=== PATIENT | male | born 1940 | race Caucasian/White ===

== ENCOUNTER → 2024-05-14 | Outpatient (CLI) | payer MEDICARE, BC, SELFPAY | END | disposition home or self-care (01) | LOC: SWHD 09:54 | PROVIDERS: PCP Family Medicine; Referring Provider Family Medicine; Visit Provider Student in an Organized Health Care Education/Training Program | DX: I87.332 Chronic venous hypertension (idiopathic) with ulcer and inflammation of left lower extremity (principal); L97.322 Non-pressure chronic ulcer of left ankle with fat layer exposed; R60.0 Localized edema; L90.5 Scar conditions and fibrosis of skin; Z91.199 Patient's noncompliance with other medical treatment and regimen due to unspecified reason | CPT/HCPCS: 11042; A9270 ==

== ENCOUNTER → 2024-06-11 | Outpatient (CLI) | payer MEDICARE, BC, SELFPAY | END | disposition home or self-care (01) | LOC: SWHD 10:16 | PROVIDERS: PCP Family Medicine; Referring Provider Family Medicine; Visit Provider Student in an Organized Health Care Education/Training Program | DX: I87.332 Chronic venous hypertension (idiopathic) with ulcer and inflammation of left lower extremity (principal); L97.322 Non-pressure chronic ulcer of left ankle with fat layer exposed; R60.0 Localized edema; L90.5 Scar conditions and fibrosis of skin; Z91.199 Patient's noncompliance with other medical treatment and regimen due to unspecified reason | CPT/HCPCS: 11042; A9270 ==

== ENCOUNTER → 2024-06-25 | Outpatient (CLI) | payer MEDICARE, BC, SELFPAY | END | disposition home or self-care (01) | LOC: SWHD 10:08 | PROVIDERS: PCP Family Medicine; Referring Provider Family Medicine; Visit Provider Student in an Organized Health Care Education/Training Program | DX: I87.332 Chronic venous hypertension (idiopathic) with ulcer and inflammation of left lower extremity (principal); L97.325 Non-pressure chronic ulcer of left ankle with muscle involvement without evidence of necrosis; R60.0 Localized edema; L90.5 Scar conditions and fibrosis of skin; Z91.199 Patient's noncompliance with other medical treatment and regimen due to unspecified reason | CPT/HCPCS: 11042; A9270 ==

== ENCOUNTER → 2024-07-09 | Outpatient (CLI) | payer MEDICARE, BC, SELFPAY | END | disposition home or self-care (01) | LOC: SWHD 10:02 | PROVIDERS: PCP Family Medicine; Referring Provider Family Medicine; Visit Provider Student in an Organized Health Care Education/Training Program | DX: I96 Gangrene, not elsewhere classified (principal); I87.332 Chronic venous hypertension (idiopathic) with ulcer and inflammation of left lower extremity; L97.325 Non-pressure chronic ulcer of left ankle with muscle involvement without evidence of necrosis; R60.0 Localized edema; L90.5 Scar conditions and fibrosis of skin; Z91.199 Patient's noncompliance with other medical treatment and regimen due to unspecified reason | CPT/HCPCS: 11042; A9270 ==

== ENCOUNTER → 2024-07-23 | Outpatient (CLI) | payer MEDICARE, BC, SELFPAY | END | disposition home or self-care (01) | LOC: SWHD 10:19 | PROVIDERS: PCP Family Medicine; Referring Provider Family Medicine; Visit Provider Surgery | DX: I87.332 Chronic venous hypertension (idiopathic) with ulcer and inflammation of left lower extremity (principal); L97.322 Non-pressure chronic ulcer of left ankle with fat layer exposed; R60.0 Localized edema; L90.5 Scar conditions and fibrosis of skin; Z91.199 Patient's noncompliance with other medical treatment and regimen due to unspecified reason | CPT/HCPCS: 11042; A9270 ==

== ENCOUNTER → 2024-08-06 | Outpatient (CLI) | payer MEDICARE, BC, SELFPAY | END | disposition home or self-care (01) | LOC: SWHD 10:12 | PROVIDERS: PCP Family Medicine; Referring Provider Family Medicine; Visit Provider Student in an Organized Health Care Education/Training Program | DX: I96 Gangrene, not elsewhere classified (principal); L97.325 Non-pressure chronic ulcer of left ankle with muscle involvement without evidence of necrosis; R60.0 Localized edema; L90.5 Scar conditions and fibrosis of skin; Z91.199 Patient's noncompliance with other medical treatment and regimen due to unspecified reason | CPT/HCPCS: 11043; A9270 ==

== ENCOUNTER → 2024-08-10 | Outpatient (CLI) | payer MEDICARE, BC, SELFPAY | END | disposition home or self-care (01) | LOC: SWHD 10:03 | PROVIDERS: PCP Family Medicine; Referring Provider Family Medicine; Visit Provider Surgery | DX: I96 Gangrene, not elsewhere classified (principal); L97.325 Non-pressure chronic ulcer of left ankle with muscle involvement without evidence of necrosis; R60.0 Localized edema; L90.5 Scar conditions and fibrosis of skin; E66.9 Obesity, unspecified; Z91.199 Patient's noncompliance with other medical treatment and regimen due to unspecified reason | CPT/HCPCS: 11042 ==

== ENCOUNTER → 2024-08-20 | Outpatient (CLI) | payer MEDICARE, BC, SELFPAY | END | disposition home or self-care (01) | LOC: SWHD 10:06 | PROVIDERS: PCP Family Medicine; Referring Provider Family Medicine; Visit Provider Student in an Organized Health Care Education/Training Program | DX: I96 Gangrene, not elsewhere classified (principal); L97.325 Non-pressure chronic ulcer of left ankle with muscle involvement without evidence of necrosis; R60.0 Localized edema; L90.5 Scar conditions and fibrosis of skin; E66.9 Obesity, unspecified; Z91.199 Patient's noncompliance with other medical treatment and regimen due to unspecified reason | CPT/HCPCS: 11043; A9270 ==

== ENCOUNTER → 2024-08-22 | Outpatient (CLI) | payer MEDICARE, BC, SELFPAY ==
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
== END | disposition home or self-care (01) ==
PROVIDERS: PCP Student in an Organized Health Care Education/Training Program; Referring Provider Student in an Organized Health Care Education/Training Program; Visit Provider Student in an Organized Health Care Education/Training Program
DX: S91.002A Unspecified open wound, left ankle, initial encounter (principal); W34.00XA Accidental discharge from unspecified firearms or gun, initial encounter; I96 Gangrene, not elsewhere classified
CPT/HCPCS: 73721

== ENCOUNTER → 2024-09-03 | Outpatient (CLI) | payer MEDICARE, BC, SELFPAY | END | disposition home or self-care (01) | LOC: SWHD 10:33 | PROVIDERS: PCP Family Medicine; Referring Provider Family Medicine; Visit Provider Surgery | DX: I96 Gangrene, not elsewhere classified (principal); L97.322 Non-pressure chronic ulcer of left ankle with fat layer exposed; R60.0 Localized edema; L90.5 Scar conditions and fibrosis of skin; E66.9 Obesity, unspecified; Z91.199 Patient's noncompliance with other medical treatment and regimen due to unspecified reason | CPT/HCPCS: 11042; A9270 ==

== ENCOUNTER → 2024-09-17 | Outpatient (CLI) | payer MEDICARE, BC, SELFPAY | END | disposition home or self-care (01) | LOC: SWHD 10:30 | PROVIDERS: PCP Family Medicine; Referring Provider Family Medicine; Visit Provider Surgery | DX: I96 Gangrene, not elsewhere classified (principal); L97.322 Non-pressure chronic ulcer of left ankle with fat layer exposed; R60.0 Localized edema; L90.5 Scar conditions and fibrosis of skin; E66.9 Obesity, unspecified; Z91.199 Patient's noncompliance with other medical treatment and regimen due to unspecified reason | CPT/HCPCS: 11042; 99213; A9270; G0463 ==

== ENCOUNTER → 2024-10-01 | Outpatient (CLI) | payer MEDICARE, BC, SELFPAY | END | disposition home or self-care (01) | PROVIDERS: PCP Family Medicine; Referring Provider Family Medicine; Visit Provider Student in an Organized Health Care Education/Training Program | DX: I96 Gangrene, not elsewhere classified (principal); L97.325 Non-pressure chronic ulcer of left ankle with muscle involvement without evidence of necrosis; R60.0 Localized edema; L90.5 Scar conditions and fibrosis of skin; E66.9 Obesity, unspecified; Z91.199 Patient's noncompliance with other medical treatment and regimen due to unspecified reason | CPT/HCPCS: 11042; A9270 ==

== ENCOUNTER → 2024-10-15 | Outpatient (CLI) | payer MEDICARE, BC, SELFPAY | END | disposition home or self-care (01) | LOC: SWHD 10:29 | PROVIDERS: PCP Family Medicine; Referring Provider Family Medicine; Visit Provider Student in an Organized Health Care Education/Training Program | DX: I96 Gangrene, not elsewhere classified (principal); L97.322 Non-pressure chronic ulcer of left ankle with fat layer exposed; R60.0 Localized edema; L90.5 Scar conditions and fibrosis of skin; E66.9 Obesity, unspecified; Z91.199 Patient's noncompliance with other medical treatment and regimen due to unspecified reason | CPT/HCPCS: 97597; A9270 ==

== ENCOUNTER → 2024-10-29 | Outpatient (CLI) | payer MEDICARE, BC, SELFPAY | END | disposition home or self-care (01) | LOC: SWHD 10:18 | PROVIDERS: PCP Family Medicine; Referring Provider Family Medicine; Visit Provider Surgery | DX: I96 Gangrene, not elsewhere classified (principal); E66.9 Obesity, unspecified; Z91.199 Patient's noncompliance with other medical treatment and regimen due to unspecified reason | CPT/HCPCS: 11042; A9270 ==

== ENCOUNTER → 2024-11-12 | Outpatient (CLI) | payer MEDICARE, BC, SELFPAY | END | disposition home or self-care (01) | LOC: SWHD 10:50 | PROVIDERS: PCP Family Medicine; Referring Provider Family Medicine; Visit Provider Student in an Organized Health Care Education/Training Program | DX: I96 Gangrene, not elsewhere classified (principal); L97.322 Non-pressure chronic ulcer of left ankle with fat layer exposed; R60.0 Localized edema; L90.5 Scar conditions and fibrosis of skin | CPT/HCPCS: 11042; A9270 ==

== ENCOUNTER → 2024-11-26 | Outpatient (CLI) | payer MEDICARE, BC, SELFPAY | END | disposition home or self-care (01) | LOC: SWHD 10:44 | PROVIDERS: PCP Family Medicine; Referring Provider Family Medicine; Visit Provider Student in an Organized Health Care Education/Training Program | DX: I96 Gangrene, not elsewhere classified (principal); L97.322 Non-pressure chronic ulcer of left ankle with fat layer exposed; R60.0 Localized edema; L90.5 Scar conditions and fibrosis of skin | CPT/HCPCS: 11042; A9270 ==

== ENCOUNTER → 2024-12-10 | Outpatient (CLI) | payer MEDICARE, BC, SELFPAY | END | disposition home or self-care (01) | LOC: SWHD 10:15 | PROVIDERS: PCP Family Medicine; Referring Provider Family Medicine; Visit Provider Student in an Organized Health Care Education/Training Program | DX: I96 Gangrene, not elsewhere classified (principal); L97.322 Non-pressure chronic ulcer of left ankle with fat layer exposed; R60.0 Localized edema; L90.5 Scar conditions and fibrosis of skin | CPT/HCPCS: 11042; A9270 ==

== ENCOUNTER → 2024-12-24 | Outpatient (CLI) | payer MEDICARE, BC, SELFPAY | END | disposition home or self-care (01) | LOC: SWHD 10:16 | PROVIDERS: PCP Family Medicine; Referring Provider Family Medicine; Visit Provider Student in an Organized Health Care Education/Training Program | DX: I96 Gangrene, not elsewhere classified (principal); I87.312 Chronic venous hypertension (idiopathic) with ulcer of left lower extremity; L97.322 Non-pressure chronic ulcer of left ankle with fat layer exposed; R60.0 Localized edema; L90.5 Scar conditions and fibrosis of skin; I73.9 Peripheral vascular disease, unspecified; E66.9 Obesity, unspecified; Z91.199 Patient's noncompliance with other medical treatment and regimen due to unspecified reason | CPT/HCPCS: 11042; A9270 ==

== ENCOUNTER → 2025-01-07 | Outpatient (CLI) | payer MEDICARE, BC, SELFPAY | END | disposition home or self-care (01) | PROVIDERS: PCP Family Medicine; Referring Provider Family Medicine; Visit Provider Student in an Organized Health Care Education/Training Program | DX: I96 Gangrene, not elsewhere classified (principal); I87.312 Chronic venous hypertension (idiopathic) with ulcer of left lower extremity; L97.322 Non-pressure chronic ulcer of left ankle with fat layer exposed; R60.0 Localized edema; L90.5 Scar conditions and fibrosis of skin; E66.9 Obesity, unspecified; Z91.199 Patient's noncompliance with other medical treatment and regimen due to unspecified reason | CPT/HCPCS: 97597; A9270 ==

== ENCOUNTER → 2025-01-21 | Outpatient (CLI) | payer MEDICARE, BC, SELFPAY | END | disposition home or self-care (01) | LOC: SWHD 10:12 | PROVIDERS: PCP Family Medicine; Referring Provider Family Medicine; Visit Provider Student in an Organized Health Care Education/Training Program | DX: I96 Gangrene, not elsewhere classified (principal); I87.312 Chronic venous hypertension (idiopathic) with ulcer of left lower extremity; L97.322 Non-pressure chronic ulcer of left ankle with fat layer exposed; R60.0 Localized edema; L90.5 Scar conditions and fibrosis of skin; E66.9 Obesity, unspecified; Z91.199 Patient's noncompliance with other medical treatment and regimen due to unspecified reason; I50.9 Heart failure, unspecified | CPT/HCPCS: 11042; A9270 ==

== ENCOUNTER → 2025-02-04 | Outpatient (CLI) | payer MEDICARE, BC, SELFPAY | END | disposition home or self-care (01) | LOC: SWHD 10:00 | PROVIDERS: PCP Family Medicine; Referring Provider Family Medicine; Visit Provider Student in an Organized Health Care Education/Training Program | DX: I96 Gangrene, not elsewhere classified (principal); I87.312 Chronic venous hypertension (idiopathic) with ulcer of left lower extremity; L97.322 Non-pressure chronic ulcer of left ankle with fat layer exposed; R60.0 Localized edema; L90.5 Scar conditions and fibrosis of skin; E66.9 Obesity, unspecified; Z91.199 Patient's noncompliance with other medical treatment and regimen due to unspecified reason; I50.9 Heart failure, unspecified | CPT/HCPCS: 97597; A9270 ==

== ENCOUNTER → 2025-02-18 | Outpatient (CLI) | payer MEDICARE, BC, SELFPAY | END | disposition home or self-care (01) | LOC: SWHD 10:11 | PROVIDERS: PCP Family Medicine; Referring Provider Family Medicine; Visit Provider Student in an Organized Health Care Education/Training Program | DX: I96 Gangrene, not elsewhere classified (principal); I87.312 Chronic venous hypertension (idiopathic) with ulcer of left lower extremity; L97.322 Non-pressure chronic ulcer of left ankle with fat layer exposed; L90.5 Scar conditions and fibrosis of skin; E66.9 Obesity, unspecified; I50.9 Heart failure, unspecified; Z91.199 Patient's noncompliance with other medical treatment and regimen due to unspecified reason | CPT/HCPCS: 97597; A9270 ==

== ENCOUNTER → 2025-03-04 | Outpatient (CLI) | payer MEDICARE, BC, SELFPAY | END | disposition home or self-care (01) | LOC: SWHD 10:10 | PROVIDERS: PCP Family Medicine; Referring Provider Family Medicine; Visit Provider Student in an Organized Health Care Education/Training Program | DX: I96 Gangrene, not elsewhere classified (principal); I87.312 Chronic venous hypertension (idiopathic) with ulcer of left lower extremity; L97.322 Non-pressure chronic ulcer of left ankle with fat layer exposed; L90.5 Scar conditions and fibrosis of skin; E66.9 Obesity, unspecified; I50.9 Heart failure, unspecified; Z91.199 Patient's noncompliance with other medical treatment and regimen due to unspecified reason | CPT/HCPCS: 97597; A9270 ==

== ENCOUNTER → 2025-03-18 | Outpatient (CLI) | payer MEDICARE, BC, SELFPAY | END | disposition home or self-care (01) | LOC: SWHD 10:05 | PROVIDERS: PCP Family Medicine; Referring Provider Family Medicine; Visit Provider Student in an Organized Health Care Education/Training Program | DX: I96 Gangrene, not elsewhere classified (principal); I87.312 Chronic venous hypertension (idiopathic) with ulcer of left lower extremity; L97.322 Non-pressure chronic ulcer of left ankle with fat layer exposed; L90.5 Scar conditions and fibrosis of skin; E66.9 Obesity, unspecified; I50.9 Heart failure, unspecified; Z91.199 Patient's noncompliance with other medical treatment and regimen due to unspecified reason | CPT/HCPCS: 97597; A9270 ==

== ENCOUNTER → 2025-04-01 | Outpatient (CLI) | payer MEDICARE, BC, SELFPAY | END | disposition home or self-care (01) | LOC: SWHD 10:19 | PROVIDERS: PCP Family Medicine; Referring Provider Family Medicine; Visit Provider Surgery | DX: I96 Gangrene, not elsewhere classified (principal); I87.312 Chronic venous hypertension (idiopathic) with ulcer of left lower extremity; L97.322 Non-pressure chronic ulcer of left ankle with fat layer exposed; L90.5 Scar conditions and fibrosis of skin; E66.9 Obesity, unspecified; I50.9 Heart failure, unspecified; Z91.199 Patient's noncompliance with other medical treatment and regimen due to unspecified reason | CPT/HCPCS: 11042; A9270 ==

== ENCOUNTER → 2025-04-15 | Outpatient (CLI) | payer MEDICARE, BC, SELFPAY | END | disposition home or self-care (01) | LOC: SWHD 10:28 | PROVIDERS: PCP Family Medicine; Referring Provider Family Medicine; Visit Provider Student in an Organized Health Care Education/Training Program | DX: I96 Gangrene, not elsewhere classified (principal); I87.312 Chronic venous hypertension (idiopathic) with ulcer of left lower extremity; L97.322 Non-pressure chronic ulcer of left ankle with fat layer exposed; L90.5 Scar conditions and fibrosis of skin; E66.9 Obesity, unspecified; I50.9 Heart failure, unspecified; Z91.199 Patient's noncompliance with other medical treatment and regimen due to unspecified reason | CPT/HCPCS: 97597; A9270 ==

== ENCOUNTER → 2025-04-29 | Outpatient (CLI) | payer MEDICARE, BC, SELFPAY | END | disposition home or self-care (01) | LOC: SWHD 10:25 | PROVIDERS: PCP Family Medicine; Referring Provider Family Medicine; Visit Provider Student in an Organized Health Care Education/Training Program | DX: I96 Gangrene, not elsewhere classified (principal); I87.312 Chronic venous hypertension (idiopathic) with ulcer of left lower extremity; L97.322 Non-pressure chronic ulcer of left ankle with fat layer exposed; L90.5 Scar conditions and fibrosis of skin; E66.9 Obesity, unspecified; I50.9 Heart failure, unspecified; Z91.199 Patient's noncompliance with other medical treatment and regimen due to unspecified reason | CPT/HCPCS: 97597; A9270 ==

== ENCOUNTER → 2025-05-13 | Outpatient (CLI) | payer MEDICARE, BC, SELFPAY | END | disposition home or self-care (01) | LOC: SWHD 10:20 | PROVIDERS: PCP Family Medicine; Referring Provider Family Medicine; Visit Provider Student in an Organized Health Care Education/Training Program | DX: I96 Gangrene, not elsewhere classified (principal); I87.312 Chronic venous hypertension (idiopathic) with ulcer of left lower extremity; L97.322 Non-pressure chronic ulcer of left ankle with fat layer exposed; L90.5 Scar conditions and fibrosis of skin; E66.9 Obesity, unspecified; I50.9 Heart failure, unspecified; Z91.199 Patient's noncompliance with other medical treatment and regimen due to unspecified reason | CPT/HCPCS: 97597; A9270 ==

== ENCOUNTER → 2025-05-27 | Outpatient (CLI) | payer MEDICARE, BC, SELFPAY | END | disposition home or self-care (01) | LOC: SWHD 10:54 | PROVIDERS: PCP Family Medicine; Referring Provider Family Medicine; Visit Provider Student in an Organized Health Care Education/Training Program | DX: I96 Gangrene, not elsewhere classified (principal); I87.312 Chronic venous hypertension (idiopathic) with ulcer of left lower extremity; L97.322 Non-pressure chronic ulcer of left ankle with fat layer exposed; L90.5 Scar conditions and fibrosis of skin; E66.9 Obesity, unspecified; I50.9 Heart failure, unspecified; Z91.199 Patient's noncompliance with other medical treatment and regimen due to unspecified reason | CPT/HCPCS: 97597; A9270 ==

== ENCOUNTER → 2025-06-10 | Outpatient (CLI) | payer MEDICARE, BC, SELFPAY | END | disposition home or self-care (01) | PROVIDERS: PCP Family Medicine; Referring Provider Family Medicine; Visit Provider Student in an Organized Health Care Education/Training Program | DX: I96 Gangrene, not elsewhere classified (principal); I87.312 Chronic venous hypertension (idiopathic) with ulcer of left lower extremity; L97.322 Non-pressure chronic ulcer of left ankle with fat layer exposed; L90.5 Scar conditions and fibrosis of skin; E66.9 Obesity, unspecified; I50.9 Heart failure, unspecified | CPT/HCPCS: 97597; A9270 ==

== ENCOUNTER → 2025-06-24 | Outpatient (CLI) | payer MEDICARE, BC, SELFPAY | END | disposition home or self-care (01) | LOC: SWHD 10:33 | PROVIDERS: PCP Family Medicine; Referring Provider Family Medicine; Visit Provider Student in an Organized Health Care Education/Training Program | DX: I96 Gangrene, not elsewhere classified (principal); I87.312 Chronic venous hypertension (idiopathic) with ulcer of left lower extremity; L97.322 Non-pressure chronic ulcer of left ankle with fat layer exposed; L90.5 Scar conditions and fibrosis of skin; E66.9 Obesity, unspecified; I50.9 Heart failure, unspecified | CPT/HCPCS: 11042; A9270 ==

== ENCOUNTER → 2025-07-08 | Outpatient (CLI) | payer MEDICARE, BC, SELFPAY | END | disposition home or self-care (01) | LOC: SWHD 10:23 | PROVIDERS: PCP Family Medicine; Referring Provider Family Medicine; Visit Provider Student in an Organized Health Care Education/Training Program | DX: I96 Gangrene, not elsewhere classified (principal); I87.312 Chronic venous hypertension (idiopathic) with ulcer of left lower extremity; L97.321 Non-pressure chronic ulcer of left ankle limited to breakdown of skin; L90.5 Scar conditions and fibrosis of skin; E66.9 Obesity, unspecified; I50.9 Heart failure, unspecified | CPT/HCPCS: 97597; A9270 ==